=== PATIENT | male | born 1985 | race Caucasian/White ===

== ENCOUNTER 2021-06-24 08:11 | Day surgery (SDC) | payer OTHER ==
[2021-06-19 11:09] LABS: BASOPHILS % (AUTO) 0.7 % (0-1); EOSINOPHILS # (AUTO) 0.3 X10'3 (0-0.9); EOSINOPHILS % (AUTO) 5.2 % (0-6); LYMPHOCYTES # (AUTO) 1.9 X10'3 (1.1-4.8); MEAN CORPUSCULAR HGB CONC 33.9 g/dL (33.0-36.5); MEAN CORPUSCULAR VOLUME 88.5 FL (78-98); MEAN PLATELET VOLUME 8.1 FL (7.4-10.4); MONOCYTES # (AUTO) 0.4 X10'3 (0-0.9); MONOCYTES % (AUTO) 8.3 % (2-12); NEUTROPHILS # (AUTO) 2.7 X10'3 (1.8-7.7); NEUTROPHILS % (AUTO) 49.8 % (42-75); PRE OP HEMATOCRIT 44.4 % (42.0-52.0); PRE OP PLATELET COUNT 232 X10'3 (140-440); RED BLOOD COUNT 5.01 X10'6 (4.70-6.10); RED CELL DISTRIBUTION WIDTH 13.8 % (11.5-14.5)
[2021-06-19 11:35] LABS: ALBUMIN 4.1 G/DL (3.4-5.0); ALBUMIN/GLOBULIN RATIO 1.1 (1.1-1.5); ALKALINE PHOSPHATASE 101 IU/L (46-116); BLOOD UREA NITROGEN 24 MG/DL (7-18); BUN/CREATININE RATIO 16.6 (5.4-32.0); CALCIUM 9.1 MG/DL (8.5-10.1); CHLORIDE 104 MMOL/L (99-107); CREATININE 1.45 MG/DL (0.60-1.10); PRE OP ALT 62 U/L (30-65); PRE OP ANION GAP 9 (8-16); PRE OP AST 34 U/L (10-37); PRE OP GLUCOSE 93 MG/DL (70-104); PRE OP SODIUM 141 MMOL/L (135-145); TOTAL CARBON DIOXIDE 28.4 MMOL/L (24-32); TOTAL PROTEIN 7.7 G/DL (6.4-8.2); eGFR 55 ML/MIN
[~2021-06-24] VITALS: Ht 182.9 cm; Wt 99.1 kg
[2021-06-24] VITALS (9 sets, daily range): BP systolic 118–133; BP diastolic 64–72
[~2021-06-24 08:11] MED LIST: BUPIVAcaine/PF 2.5mg/ml (0.25%) 10ml vial ONE; LIDOcaine 1% 30ml preserv. free vial ONE; NO HOME MEDS; clindamycin-Cleocin 900mg/D5W 50 ML IV ONE; famotidine 20mg tablet PO ONE; ringers solution, lacted 1,000 ML IV SCH
[2021-06-24] MEDS ORDERED: sevoflurane 250ml liquid IH ONE (10:34)
[2021-06-24] MEDS ORDERED: fentaNYL/PF 50MCG/1 ML 2ML syringe ONE (10:37)
[2021-06-24] MEDS ORDERED: midazolam 1 mg/ML 2ml injection ONE (10:38)
[2021-06-24] MEDS ORDERED: morphine 2 MG/ML inj. syringe IV PRN (11:15)
[2021-06-24] MEDS ORDERED: ondansetron/PF 4mg/2ml inj IV PRN (11:15)
[2021-06-24] MEDS ORDERED: morphine 4 MG/ML inj SYRINge IV PRN (11:15)
[2021-06-24] MEDS ORDERED: proCHLORperazine 10 MG/2 ml inj IV PRN (11:15)
[2021-06-24] MEDS ORDERED: meperidine/PF 25mg/ml syringe IV PRN ×2 (11:15)
[2021-06-24] MEDS ORDERED: ringers solution, lacted 1,000 ML IV SCH (11:15)
[2021-06-24] MEDS ORDERED: propofol inj 20 ML IV ONE (12:02)
[2021-06-24] MEDS ORDERED: rocuronium 10mg/ml inj IV ONE (12:02)
[2021-06-24] MEDS ORDERED: glycopyrrolate 0.2mg/ml inj ONE (12:03)
[2021-06-24] MEDS ORDERED: dexamethasone sod phosphate 4mg/ml inj. ONE (12:03)
[2021-06-24] MEDS ORDERED: neostigmine methylsulfate 1 MG/ML 10ml vial ONE (12:03)
[2021-06-24] MEDS ORDERED: ondansetron/PF 4mg/2ml inj ONE (12:03)
--- NOTE | 2021-06-24 12:15 | NUR ---
PT ARRIVED FROM [place] VIA [facility] WITH DR JOHNS- REPORT GIVEN, PT WAKING UP, DENIES PAIN, VSS, PIV 20G TO LEFT HAND-LR RUNNING, SCDS IN PLACE, LAP SITES X3-CDI
[2021-06-24] MEDS ORDERED: oxyCODONE/APAP 5-325mg tablet PO PRN (12:20)
[2021-06-24] MEDS: meperidine/PF 25mg/ml syringe IV PRN ×2 (12:53→13:01)
--- NOTE | 2021-06-24 13:35 | NUR ---
PT DOING WELL AFTER ZOFRAN, UP GETTING DRESSED, TOLERATING FLUIDS AND CRACKERS, VSS, ABLE TO VOID W/O DIFFICULTY, LAP SITES X 3-CDI, PIV D/CD CANULA INTACT, D/C INSTRUCTIONS GIVEN TO PT-ALL QUESTIONS ANSWERED, TAKEN WITH ALL BELONGINGS TO VEHICLE, DRIVEN BY GIRLFRIEND
== END 2021-06-24 13:35 | disposition home or self-care (01) ==
LOC: PAS 08:11
PROVIDERS: ATTEND Surgery
DX: K40.91 Unilateral inguinal hernia, without obstruction or gangrene, recurrent (principal); K40.90 Unilateral inguinal hernia, without obstruction or gangrene, not specified as recurrent; Z79.899 Other long term (current) drug therapy; Z88.0 Allergy status to penicillin; Z98.890 Other specified postprocedural states
CPT/HCPCS: 36415; 49650; 49651; 80053; 82948; 85025; C1781; J1100; J2001; J2175; J2250; J2405; J2704; J2710; J3010; J3490; S2900; U0003; U0005; Z7506; Z7508; Z7512; A4215; A4618; J7120